=== PATIENT | male | born 1970 | race Caucasian/White ===

== ENCOUNTER 2023-02-13 15:12 | Emergency (ER) | payer SELFPAY ==
[2023-02-13 15:17] VITALS: BP 136/91; PULSE 72; RESP 18; TEMP 36.7; O2SAT 94; BMI 23.6
--- NOTE | 2023-02-13 15:25 | ED_ITS ---
HPI - Extremity Problem General: Chief complaint: Extremity Injury, Upper Stated complaint: POSSIBLE BLOOD CLOT Time Seen by Provider: 02/13/23 15:17 Source: patient Mode of arrival: other (Law enforcement) History of Present Illness: 52-year-old male presents emergency room when his right medial forearm he has a small nodule that has been present for several months he states up to 6 months. He is concerned it may be a blood clot. MD Complaint: extremity swelling Onset (ago): month(s) (6) Location: right and upper extremity Relieving factors: nothing Exacerbating factors: nothing Associated symptoms: Deny arthralgias, chest pain, fever(s), myalgias, rash, short of breath or other Review of Systems Const: Denies: fever(s) or chills Card: Denies: chest pain or dyspnea on exertion Resp: Denies: dyspnea, productive cough or non-productive cough GI: Denies: abdominal pain, nausea or vomiting Skin/Breast: Denies: rash Physical Exam Const: GENERAL APPEARANCE: cooperative and comfortable ORIENTATION/CONSCIOUSNESS: Yes awake, Yes oriented to person, Yes oriented to place and Yes oriented to time HENMT: COMMON NORMALS: normocephalic, atraumatic and hearing grossly normal bilaterally HEAD & SCALP: normocephalic and atraumatic Resp: COMMON NORMALS: normal respiratory effort, No retractions, No use of accessory muscles and clear to auscultation bilaterally AUSCULTATION: clear to auscultation bilaterally Cardio: COMMON NORMALS: regular rate, regular rhythm and No murmurs present (Cardio) RATE: regular rate RHYTHM: regular rhythm Extremity: OTHER: Small soft tissue swelling nonfluctuant mildly tender no erythema no induration contiguous with a superficial vein. Neuro: SENSORIUM/ORIENTATION: Yes oriented to person, Yes oriented to place and Yes oriented to time Skin: COMMON NORMALS: no rashes or lesions noted GENERAL SKIN EXAM: no rashes or lesions noted Course Vital Signs: Vital signs: Vital Signs Temperature 98.1 F 02/13/23 15:17 Pulse Rate 72 02/13/23 15:17 Respiratory Rate 18 02/13/23 15:17 Blood Pressure 136/91 02/13/23 15:17 Pulse Oximetry 94 02/13/23 15:17 Oxygen Delivery Me thod Room Air 02/13/23 15:17 MDM - Extremity (Nontraumatic) Medical Decision Making Appears to be superficial thrombophlebitis apply moist heat anti-inflammatories as needed follow-up primary care Discharge Plan Discharge Patient Disposition: Home Clinical Impression: Superficial thrombophlebitis Condition: Stable Prescriptions: New diclofenac sodium 75 mg tablet,delayed release (DR/EC) 75 mg PO Q12H PRN (Reason: pain) Qty: 20 0RF Discharge Orders: Discharge ED (Routine); Ordered 02/13/23 Ordered By: Darren Hermosillo Discharge Diet: Usual diet Discharge Activity: Resume usual activity Patient Instructions: Superficial Thrombophlebitis (ED), Opioid Safety, Pain Management Activity Restrictions/Additional Instructions: Apply moist heat 3-4 times a day for 15 minutes at a time to the area use anti- inflammatories 1 pill twice daily follow-up with your primary care doctor. Coding Level of Care Code ED Ex Assistant/Program Director for Julia Denny
--- NOTE | 2023-02-26 13:25 | DCPLANNER ---
TCM called patient due to no primary care physician - no answer at this time.
== END 2023-02-13 15:42 | disposition home or self-care (01) ==
PROVIDERS: Emergency Provider Family Medicine
DX: I80.8 Phlebitis and thrombophlebitis of other sites (principal)
CPT/HCPCS: 99283